=== PATIENT | female | born 1965 | race Caucasian/White ===

== ENCOUNTER 2021-04-28 16:02 | Emergency (ER) | payer OTHER, SELFPAY ==
--- NOTE | ~2021-04-28 | CT_ITS ---
EXAMINATION: CT abdomen pelvis w con DATE: 04/28/2021 19:54 INDICATION: Abdominal pain TECHNIQUE: Computed tomography (CT) of the abdomen and pelvis was performed with 100 mL Omnipaque-350 intravenous contrast. Automated exposure control and iterative reconstruction technique were employe d. The dose-length product was 672.55 mGy-cm. COMPARISON: None FINDINGS: Mild dependent atelectasis in the bilateral lower lobes. Heart size is normal. No pericardial or pleu ral effusion. Small sliding-type hiatal hernia. Liver, gallbladder, spleen, pancreas, bilateral adren al glands and kidneys are normal. There is prominent edematous wall thickening throughout multiple fl uid-filled but not frankly dilated loops of small bowel throughout the abdomen consistent with an ent eritis. Fluid in the colon consistent with diarrhea. Mild diverticulosis along the descending and sig moid colon without adjacent inflammatory change to suggest diverticulitis. Normal appendix. Bladder i s normal. The uterus is not identified and has likely been surgically resected. Small amount of ascit es scattered throughout the abdomen and pelvis. No abscess or free intraperitoneal gas. No pathologic ally enlarged abdominal or pelvic lymphadenopathy. Mild scattered degenerative skeletal changes in th e spine and pelvis. IMPRESSION: 1. Extensive edematous wall thickening involving multiple loops of ileum consistent with enteritis mo st likely either infectious or inflammatory in etiology. 2. Small amount of likely reactive ascites. 3. Small sliding-type hiatal hernia. Reviewed, dictated and finalized at location [facility]. IMPRESSION: 1. Extensive edematous wall thickening involving multiple loops of ileum consis tent with enteritis most likely either infectious or inflammatory in etiology. 2. Small amount of likely reactive ascites. 3. Small sliding-type hiatal hernia.
[2021-04-28 16:18] VITALS: BP 165/101; PULSE 90; RESP 16; TEMP 36.3; O2SAT 99
[2021-04-28 16:43] LABS: Basophils Percent Auto 0.4 % (0.2-1.2); Eosinophils Absolute Auto 0.2 K/mm3 (0-0.3); Eosinophils Percent Auto 2.3 % (0-4.4); Hematocrit 44.6 % (37.0-47.0); Hemoglobin 14.3 g/dL (12.0-15.0); Immature Granulocyte Absolute 0.03 K/mm3 (0.00-0.031); Immature Granulocyte Percent A 0.4 % (0-0.5); Lymphocytes Absolute Auto 2.18 K/mm3 (0.9-3.2); Lymphocytes Percent Auto 26.8 % (18.3-44.2); Mean Corpuscular HGB Conc 32.1 g/dl (32-36); Mean Corpuscular Hemoglobin 30.2 pg (26-34); Mean Corpuscular Volume 94.1 fl (80-100); Monocytes Absolute Auto 0.4 K/mm3 (0.1-0.6); Monocytes Percent Auto 5.4 % (2.6-8.5); Neutrophils Absolute Auto 5.3 K/mm3 (1.3-6.7); Neutrophils Percent Auto 64.7 % (45.5-73.1); Platelet Count Result 259 k/mm3 (150-375); Red Blood Count 4.74 M/mm3 (4.2-5.4); Red Cell Distribution Width 13.2 % (11.5-14.5); White Blood Count 8.1 K/mm3 (4.5-10.0)
[2021-04-28 16:50] LABS: Add Urine Microscopic? YES; Appearance Urine Clear (Clear); Bilirubin Urine Negative (Negative); Blood Urine Negative (Negative); Color Urine Yellow (Yellow); Glucose Urine UA Negative (Negative); Ketones Urine Trace mg/dL (Negative); Leukocyte Esterase Ur Negative LEU/UL (Negative); Mucus Urine Rare /lpf; Nitrate Urine Negative (Negative); Protein Urine 1+ mg/dL (Negative); RBC Urine 0-2 /hpf (0-2); Specific Grav Ur 1.026 (1.001-1.035); WBC Urine 0-3 /hpf
[2021-04-28 16:56] LABS: Alanine Aminotransferase 19 U/L (4-35); Alkaline Phosphatase 83 U/L (38-126); Anion Gap 4 mmol/L (8-16); Aspartate Amino Transferase 21 U/L (14-36); Bilirubin,Total 0.7 mg/dL (0.2-1.3); Blood Urea Nitrogen 9 mg/dL (7-17); Calcium 8.8 mg/dL (8.4-10.2); Carbon Dioxide 30 mmol/L (22-30); Chloride 105 mmol/L (98-107); Estimated CRCL calculation 74 ml/min; Estimated Glomerular Filt Rate > 60; Glucose 137 mg/dL (65-110); Lipase 35 U/L (23-300); Potassium 3.7 mmol/L (3.4-5.0); Sodium 139 mmol/L (137-145)
[2021-04-28 19:04] VITALS: BP 167/94; PULSE 81; RESP 17; O2SAT 98
--- NOTE | 2021-04-28 19:07 | ED.GENADULT ---
HPI - General Adult General Chief complaint: Abdominal Pain Stated complaint: severe abd pain Time Seen by Provider: 04/28/21 19:03 Source: RN notes reviewed History of Present Illness HPI narrative: Patient presents to emergency department from home for abdominal pain. Patient states pain began 2 days ago. The pain is from the epigastric region down to the lower abdomen described as sharp and stabbing in nature states that the pain comes in waves denies any fevers or chills, chest pain, shortness of breath, nausea vomiting diarrhea or any other symptoms. States she did not take any medication for the pain Related Data Allergies Allergy/AdvReac Type Severity Reaction Status Date / Time acetaminophen [From Percocet] AdvReac Nausea and Verified 04/28/21 19:09 Vomiting oxycodone [From Percocet] AdvReac Nausea and Verified 04/28/21 19:09 Vomiting Review of Systems Review of Systems: Gen.: Denies fevers or chills ENT: Denies congestion Respiratory: Denies shortness of breath or cough CV: Denies chest pain or palpitations GI: See HPI denies burning, urgency, frequency or hematuria Musculoskeletal: Denies back pain or muscle pain Neuro: Denies numbness, tingling, weakness or focal weakness Skin: Denies rash Except as documented, all other systems reviewed and negative PMFSH Past Medical History Medical History (Updated 04/28/21 @ 20:37 by Charan Ortega DO) Patient denies significant medical history Social History Social History (Updated 04/28/21 @ 19:08 by Charan Ortega DO) Smoking status: Never smoker Exam Narrative: APPEARANCE: No acute distress, nontoxic, resting in bed HEENT: Normocephalic, atraumatic, OMM RESPIRATORY: No respiratory distress, clear to auscultation bilaterally with no rhonchi wheezing or rales CARDIOVASCULAR: RRR s murmur ABDOMINAL: Soft nondistended diffusely tender to palpation no rebound or guarding MUSCULOSKELETAl: Moves all extremities. No clubbing, cyanosis or edema. NEURO: Awake and alert. Following commands, speech normal, no focal deficits SKIN:: Warm, dry. Normal Color PSYCHIATRIC: Normal affect/mood Course Course Emergency Course: Called and discussed with Dr. Kwong presentation work-up discussed CT results. This time feels patient may be discharged on Cipro and Flagyl with follow-up as an outpatient Patient states that they are feeling much better at this time. States abdominal pain has resolved. Repeat abdominal exam shows the patient's abdomen to be soft and nontender. Discussed with patient results of workup and diagnosis. Discussed need for follow-up with primary care physician, reasons to return to the emergency department in proper use of medication. Patient understands and agrees to current treatment plan Vital Signs Vital signs: Vital Signs Temperature 97.4 F L 04/28/21 16:18 Pulse Rate 90 04/28/21 16:18 Respiratory Rate 16 04/28/21 16:18 Blood Pressure 165/101 H 04/28/21 16:18 Pulse Oximetry 99 04/28/21 16:18 Temperature 97.4 F L 04/28/21 16:18 Pulse Rate 85 04/28/21 19:56 Respiratory Rate 15 04/28/21 19:56 Blood Pressure 178/96 H 04/28/21 19:56 Pulse Oximetry 100 04/28/21 19:56 Medical Decision Making MDM Narrative Medical decision making narrative: Patient's abdomen is soft without significant pain or signs of surgical abdomen on serial exams. Lab and x-ray evaluations are reviewed and patient is felt to be a reasonable candidate for outpatient management. Patient was instructed as to limitations of x-ray and laboratory evaluation and encouraged to return to ED or primary physician for repeat exam in 12 hours if continued or worsening pain Vital Signs Vital Signs: Vital Signs Temperature 97.4 F L 04/28/21 16:18 Pulse Rate 90 04/28/21 16:18 Respiratory Rate 16 04/28/21 16:18 Blood Pressure 165/101 H 04/28/21 16:18 Pulse Oximetry 99 04/28/21 16:18 Temperature 97.4 F L 04/28/21 16:18 P
[2021-04-28] MEDS: KETOROLAC 30 MG/ML VIAL (*BKC) IV PUSH (19:20)
[2021-04-28] MEDS: SODIUM CHLORIDE 0.9% IV 1,000 ML 999 ML IV CONT (19:20)
[2021-04-28 19:56] VITALS: BP 178/96; PULSE 85; RESP 15; O2SAT 100
[2021-04-28 20:31] LABS: Lactic Acid Reflex 0.6 mmol/L (0.7-2.1)
[2021-04-28] MEDS: metroNIDAZOLE 250 MG TABLET 500 MG PO (20:57)
[2021-04-28] MEDS: CIPROFLOXACIN 500 MG TAB PO (20:58)
[2021-04-28 21:05] VITALS: BP 165/119; PULSE 82; RESP 17; O2SAT 99
== END 2021-04-28 21:08 | disposition home or self-care (01) ==
LOC: ANHED 20:50
PROVIDERS: Family Medicine; Emergency Provider Emergency Medicine
DX: K52.9 Noninfective gastroenteritis and colitis, unspecified (principal); K44.9 Diaphragmatic hernia without obstruction or gangrene
CPT/HCPCS: 36415; 74177; 80053; 81001; 83605; 83690; 85025; 87040; 96361; 96374; 99284; A9270; J1885; J7030; Q9967

== ENCOUNTER 2021-09-07 13:25 | Emergency (ER) | payer OTHER, SELFPAY ==
--- NOTE | ~2021-09-07 | XR_ITS ---
EXAMINATION: XR toe 1st RT min 2V DATE: 09/07/2021 15:17 INDICATION: Right great toe pain and edema post fall TECHNIQUE: Dorsal plantar, lateral and oblique views of the right great toe were obtained. COMPARISON: None FINDINGS: Comminuted intra-articular fracture of the right first proximal phalanx. There is 35 degrees dorsal a ngulation at 8 transverse fracture plane stenting across the mid diaphysis. There is no additional mi nimally displaced fracture plane extending to the distal articular cortex where there is approximatel y 1.5 mm step-off along the articular surface. No other fractures identified. Mild polyarticular oste oarthritis most prominent at the first metatarsophalangeal with additional minimal to mild osteoarthr itis at a few tarsometatarsal and interphalangeal joints. IMPRESSION: Comminuted intra-articular fracture of the right first proximal phalanx. Reviewed, dictated and finalized at [facility]. [employer]
[2021-09-07 13:45] VITALS: BP 170/99; PULSE 95; RESP 18; TEMP 36.9; O2SAT 99
[2021-09-07 14:59] VITALS: BP 160/98; PULSE 89; RESP 18; TEMP 36.7; O2SAT 99
[2021-09-07] MEDS: traMADol HCL (*CRX) 50 MG TABLET PO (16:30)
--- NOTE | 2021-09-07 20:34 | ED.GENADULT ---
HPI - General Adult General Chief complaint: Extremity Injury, Lower Stated complaint: Fell out of bed. Big toe pain R foot Time Seen by Provider: 09/07/21 15:00 Source: patient Mode of arrival: ambulatory Limitations: no limitations History of Present Illness HPI narrative: Patient is a 55-year-old male with chief complaint of right great toe pain with abrasion to the left ear after falling of the. Parents arrival. Patient reports that she grazed her ear on the nightstand and kicked a dresser. Patient denies loss of consciousness, changes in vision or hearing. Patient reports pain to the great toe. Patient denies any other areas of injury. Related Data Allergies Allergy/AdvReac Type Severity Reaction Status Date / Time acetaminophen [From Percocet] AdvReac Nausea and Verified 04/28/21 19:09 Vomiting oxycodone [From Percocet] AdvReac Nausea and Verified 04/28/21 19:09 Vomiting Review of Systems Review of Systems: CONSTITUTIONAL: Denies fever, chills, or sweats. EYES: Denies visual changes, redness, or discharge. ENT: Denies rhinorrhea, congestion, sore throat, or otalgia. CARDIOVASCULAR: Denies chest pain, palpitations, or edema. RESPIRATORY: Denies cough or dyspnea. GASTROINTESTINAL: Denies abdominal pain, nausea, vomiting, or diarrhea. GENITOURINARY: Denies dysuria or hematuria. SKIN: Reports abrasion denies rash or itching. MUSCULOSKELETAL: Reports right great toe pain denies back pain, joint pain, or myalgia. NEUROLOGIC: Denies headache, numbness, dizziness, or weakness. PSYCHIATRIC: Denies anxiety or depression. PMFSH Past Medical History Medical History (Updated 09/07/21 @ 16:46 by Mark Person PA-C) Patient denies significant medical history Social History Social History (Updated 04/28/21 @ 19:08 by Charan Ortega DO) Smoking status: Never smoker Exam Narrative: GENERAL: Well-appearing, well-nourished, and in no acute distress. HEAD: Normocephalic, atraumatic. EYES: PERRLA and EOMI. ENT: Nares clear, no rhinorrhea or epistaxis. Mucous membranes moist. Oropharynx without tonsillar hypertrophy exudate or other lesions. Bilateral TMs pearly blankenship nonbulging. Abrasion to lateral aspect of left ear. NECK: Supple. No adenopathy or masses. No carotid bruits or JVD CHEST: Clear to auscultation. No respiratory distress. No wheezes rales or rhonchi HEART: Regular rate and rhythm. EXTREMITIES: Swelling and tenderness to right great toe. Callus to lateral area. No issues proximally. Normal range of motion proximally. No edema proximally. SKIN: Warm, dry, no rash. NEURO: No focal deficits. Alert and oriented x3. PSYCH: Normal mood and affect. Course Vital Signs Vital signs: Vital Signs Temperature 98.4 F 09/07/21 13:45 Pulse Rate 95 09/07/21 13:45 Respiratory Rate 18 09/07/21 13:45 Blood Pressure 170/99 H 09/07/21 13:45 Pulse Oximetry 99 09/07/21 13:45 Temperature 98.0 F 09/07/21 14:59 Pulse Rate 89 09/07/21 14:59 Respiratory Rate 18 09/07/21 14:59 Blood Pressure 160/98 H 09/07/21 14:59 Pulse Oximetry 99 09/07/21 14:59 Medical Decision Making MDM Narrative Medical decision making narrative: Consult with Dr. Haley regarding the angulation of the patient's intra-articular fracture of the great toe. He states that there is not anything to be done in emergency department to put patient in postop shoe and have her follow-up in his office for further evaluation and management. Patient placed in postop shoe and given crutches to assist with ambulation. Patient given tramadol for discomfort. Patient instructed to return to emergency department if she has any emergent symptoms. Vital Signs Vital Signs: Vital Signs Temperature 98.4 F 09/07/21 13:45 Pulse Rate 95 09/07/21 13:45 Respiratory Rate 18 09/07/21 13:45 Blood Pressure 170/99 H 09/07/21 13:45 Pulse Oximetry 99 09/07/21 13:45 Temperature 98.0 F 09/07/21 14:59 Pulse Rate 89 09/07
== END 2021-09-07 17:27 | disposition home or self-care (01) ==
PROVIDERS: Emergency Provider Emergency Medicine
DX: S92.411A Displaced fracture of proximal phalanx of right great toe, initial encounter for closed fracture (principal); W06.XXXA Fall from bed, initial encounter
CPT/HCPCS: 73660; 99284; A9270

== ENCOUNTER 2022-05-29 15:00 | Emergency (ER) | payer OTHER, SELFPAY ==
--- NOTE | ~2022-05-29 | XR_ITS ---
EXAMINATION: XR chest 2V Exam Date/Time: 05/29/2022 15:33 CDT HISTORY: CHF,bilateral lower leg swelling Comparison: None available. RESULT: Lines, tubes, and devices: None. Lungs and pleura: Clear. Cardiomediastinal silhouette: Mild cardiomegaly. Dilated aortic root. Hyperinflated lungs, increased AP diameter. Other: No acute osseous or upper abdominal finding. IMPRESSION: No acute cardiopulmonary process. Likely component of respiratory bronchiolitis overlying chronic emp hysematous change. Mild cardiomegaly. Aortic root dilation. Reviewed, dictated and finalized at location [facility]. IMPRESSION: No acute cardiopulmonary process. Likely component of respiratory bronchiolitis overlying chronic emphysematous change. Mild cardiomegaly. Aortic root dilatio n.
[2022-05-29 15:04] VITALS: BP 198/93; RESP 14; TEMP 36.4; O2SAT 100
--- NOTE | 2022-05-29 15:07 | ECG_ITS ---
Measurements Intervals [place] Rate: 87 P: 65 VT: 141 QRS: 44 QRSD: 110 T: 79 QT: 378 QTc: 455 Interpretive Statements SINUS RHYTHM POSSIBLE RIGHT ATRIAL ENLARGEMENT LEFT ATRIAL ENLARGEMENT LEFT VENTRICULAR HYPERTROPHY AND ST-T CHANGE BORDERLINE ECG NO PREVIOUS ECG AVAILABLE FOR COMPARISON Electronically Signed On 05-30-2022 6:59:29 CDT by Bill Snider D.O.
[2022-05-29 15:26] LABS: Basophils Absolute Auto 0.1 K/mm3 (0.0-0.1); Basophils Percent Auto 0.8 % (0.2-1.2); Eosinophils Absolute Auto 0.3 K/mm3 (0-0.3); Eosinophils Percent Auto 5.2 % (0-4.4); Hematocrit 38.4 % (37.0-47.0); Hemoglobin 12.1 g/dL (12.0-15.0); Immature Granulocyte Absolute 0.02 K/mm3 (0.00-0.031); Immature Granulocyte Percent A 0.3 % (0-0.5); Lymphocytes Absolute Auto 1.36 K/mm3 (0.9-3.2); Mean Corpuscular HGB Conc 31.5 g/dl (32-36); Mean Corpuscular Volume 92.1 fl (80-100); Mean Platelet Volume 8.4 fl (7.4-10.4); Monocytes Absolute Auto 0.5 K/mm3 (0.1-0.6); Monocytes Percent Auto 8.4 % (2.6-8.5); Neutrophils Absolute Auto 3.9 K/mm3 (1.3-6.7); Neutrophils Percent Auto 63.3 % (45.5-73.1); Platelet Count Result 283 k/mm3 (150-375); Red Blood Count 4.17 M/mm3 (4.2-5.4); Red Cell Distribution Width 13.7 % (11.5-14.5); White Blood Count 6.2 K/mm3 (4.5-10.0)
[2022-05-29 15:34] LABS: Alanine Aminotransferase 18 U/L (6-35); Albumin Level 3.9 g/dL (3.5-5.1); Alkaline Phosphatase 99 U/L (38-126); Anion Gap 6 mmol/L (8-16); Aspartate Amino Transferase 22 U/L (14-36); Bilirubin,Total 0.3 mg/dL (0.2-1.3); Blood Urea Nitrogen 8 mg/dL (7-17); Calcium 8.6 mg/dL (8.4-10.2); Carbon Dioxide 30 mmol/L (22-30); Chloride 104 mmol/L (98-107); Estimated CRCL calculation 77 ml/min; Estimated Glomerular Filt Rate > 60; Glucose 176 mg/dL (65-110); Potassium 3.5 mmol/L (3.4-5.0); Prothrombin Time 12.7 Seconds (11.1-14.7); Sodium 140 mmol/L (137-145)
[2022-05-29 15:35] LABS: Partial Thromboplastin Time 36.4 SECONDS (22.3-36.8)
[2022-05-29 15:46] LABS: NT Pro B Type Natriuretic Pept 1090 pg/mL (5-100); Troponin I < 0.012 ng/mL (0.000-0.034)
--- NOTE | 2022-05-29 17:27 | ED.GENADULT ---
HPI - General Adult General Chief complaint: Extremity Problem,Nontraumatic Stated complaint: swelling in lower extremities Time Seen by Provider: 05/29/22 16:10 History of Present Illness HPI narrative: Patient is a 56-year-old female who presents ER with concerns of swelling in her lower extremities. Intermittent over the last week. Swelling used to go down in her ankles when she would elevate her legs but notes persistent. She has not tried any compression hose. She has no pain or cramping in her calves. No chest pain or shortness of breath. No orthopnea or shortness of breath. Denies history of heart failure. Patient also reports that she has developed a new rash over the last 2 to 3 weeks. It began on her back at her bra line and has since spread across her back, her chest, and her extremities. No purulent drainage. No fevers chills or sweats. They are pruritic. Related Data Home Medications Medication Instructions Recorded Confirmed naproxen sodium 220 mg capsule 220 mg PO BID PRN 09/08/21 11/10/21 Allergies Allergy/AdvReac Type Severity Reaction Status Date / Time acetaminophen [From Percocet] AdvReac Nausea and Verified 11/10/21 09:26 Vomiting oxycodone [From Percocet] AdvReac Nausea and Verified 11/10/21 09:26 Vomiting Review of Systems Review of Systems: All systems reviewed & are unremarkable except as noted in HPI and below Constitutional: Constitutional: Denies chills, Denies fatigue and Denies fever(s) ENT: Denies nasal congestion and Denies sore throat Respiratory: Respiratory: Denies cough, Denies dyspnea and Denies wheezing Gastrointestinal: Gastrointestinal: Denies abdominal pain, Denies nausea and Denies vomiting Musculoskeletal: Comments: Leg edema Integumentary/Breasts: Skin/Breast: Reports pruritus, Reports erythema and Reports rash PMF Past Medical History Medical History JUAN (obstructive sleep apnea) Patient denies significant medical history Surgical History Surgical History History of hysterectomy 2002 per patient questionnaire History of sinus surgery 2012 per patient questionnaire Family History Family History Other Esophagus cancer Hypertension Lung cancer Social History Social History Smoking packs per day: 0.5 Smoking cigarettes per day: 10.0 Years smoked: 30 Smoking pack-years: 15.00 Tobacco type: cigarettes Alcohol intake: current Substance use: never Substance use type: does not use 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 HEAD: Normocephalic, atraumatic. EYES: PERRL and EOMI. CHEST: Clear to auscultation. No respiratory distress. HEART: Regular rate and rhythm. Normal peripheral pulses. ABDOMEN: Soft, nontender, nondistended. EXTREMITIES: Normal range of motion. No edema. SKIN: Warm, dry. Rash on the back that is most prominent between the scapula and over the spine with dried scaling plaques. There are additional small dry plaques to the upper and lower extremities as well as the chest. Consistent with pityriasis. No vesicles or pustules. NEURO: Alert and oriented x3. PSYCH: Normal mood and affect. Course Course Emergency Course: Discussed treatment plan. Will place on Lasix with potassium supplementation and decrease swelling. Swelling is likely reactive to psoriasis plaques on the legs. There is no evidence of cellulitis. Recommend follow-up with PCP. Vital Signs Vital signs: Vital Signs Temperature 97.5 F L 05/29/22 15:04 Respiratory Rate 14 05/29/22 15:04 Blood Pressure 198/93 H 05/29/22 15:04 Pulse Oximetry 100 05/29/22 15:04 Oxygen Delivery Room Air 05/29/22 15:
[2022-05-29 17:53] VITALS: BP 170/92; PULSE 95; RESP 16; O2SAT 99
[2022-05-29 18:34] VITALS: BP 165/86; PULSE 87; RESP 18; O2SAT 98
== END 2022-05-29 18:35 | disposition home or self-care (01) ==
PROVIDERS: Emergency Medicine; Emergency Provider Emergency Medicine; PCP Obstetrics & Gynecology
DX: L42 Pityriasis rosea (principal); R60.0 Localized edema; G47.33 Obstructive sleep apnea (adult) (pediatric); F17.210 Nicotine dependence, cigarettes, uncomplicated
CPT/HCPCS: 36415; 71046; 80053; 83880; 84484; 85025; 85610; 85730; 93005; 99284

== ENCOUNTER 2022-08-08 07:05 | Emergency (ER) | payer OTHER, SELFPAY ==
[2022-08-08 07:10] VITALS: BP 161/85; PULSE 100; RESP 16; TEMP 36.4; O2SAT 100
[2022-08-08 07:15] VITALS: BP 159/89; O2SAT 100
[2022-08-08 07:30] VITALS: BP 152/81
--- NOTE | 2022-08-08 07:53 | ED.GENADULT ---
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 She has been putting Neosporin on the lesion. Patient thinks it may have been an abscess because shortly before arrival it opened up and a bloody/pussy liquid came out of it. No fever or trauma. Patient also states lesions on her vagina for an unknown duration of time. These lesions are sometimes uncomfortable and sometimes edge. Last Pap smear was greater than 5 years ago. Total hysterectomy 20 years ago. Related Data Home Medications Medication Instructions Recorded Confirmed naproxen sodium 220 mg capsule 220 mg PO BID PRN 09/08/21 11/10/21 Allergies Allergy/AdvReac Type Severity Reaction Status Date / Time acetaminophen [From Percocet] AdvReac Nausea and Verified 11/10/21 09:26 Vomiting oxycodone [From Percocet] AdvReac Nausea and Verified 11/10/21 09:26 Vomiting Review of Systems Review of Systems: CONSTITUTIONAL: Denies fever, chills, or sweats. EYES: Denies visual changes, redness, or discharge. ENT: Denies rhinorrhea, congestion, sore throat, or otalgia. CARDIOVASCULAR: Denies chest pain, palpitations, or edema. RESPIRATORY: Denies cough or dyspnea. GASTROINTESTINAL: Denies abdominal pain, nausea, vomiting, or diarrhea. GENITOURINARY: Denies dysuria or hematuria. SKIN: Denies rash or itching. MUSCULOSKELETAL: Denies back pain, joint pain, or myalgia. NEUROLOGIC: Denies headache, numbness, or weakness. PSYCHIATRIC: Denies anxiety or depression. [facility] Past Medical History Medical History JUAN (obstructive sleep apnea) Patient denies significant medical history Surgical History Surgical History History of hysterectomy 2002 per patient questionnaire History of sinus surgery 2012 per patient questionnaire Family History Family History Other Esophagus cancer Hypertension Lung cancer Social History Social History Smoking packs per day: 0.5 Smoking cigarettes per day: 10.0 Years smoked: 30 Smoking pack-years: 15.00 Tobacco type: cigarettes Alcohol intake: current Substance use: never Substance use type: does not use 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 HEAD: Normocephalic, atraumatic. EYES: PERRLA and EOMI. ENT: Nares clear, no rhinorrhea or epistaxis. Mucous membranes moist. NECK: Supple. CHEST: Clear to auscultation. No respiratory distress. HEART: Regular rate and rhythm. No murmur heard. Normal peripheral pulses. ABDOMEN: Soft, nontender, nondistended, normal active bowel sounds. EXTREMITIES: Normal range of motion. No edema. SKIN: Warm, dry, no rash. Lesions noted on patient's abdomen, back, all extremities which are in different stages of healing, there is a 2 to 3 cm lesion on right medial calf which seems to have been irritated versus infected. Small area of surrounding cellulitis NEURO: No focal deficits. Alert and oriented x3. PSYCH: Normal mood and affect. : Fleshy, irregularly shaped, raised lesions on bilateral labia Course Vital Signs Vital signs: Vital Signs Temperature 97.6 F 08/08/22 07:10 Pulse Rate 100 08/08/22 07:10 Respiratory Rate 16 08/08/22 07:10 Blood Pressure 161/85 H 08/08/22 07:10 Pulse Oximetry 100 08/08/22 07:10 Oxygen Delivery Room Air 08/08/22 07:10 Temperature 97.6 F 08/08/22 07:10 Pulse Rate 100 08/08/22 07:10 Respiratory Rate 16 08/08
== END 2022-08-08 08:21 | disposition home or self-care (01) ==
PROVIDERS: Emergency Provider Emergency Medicine; PCP Obstetrics & Gynecology
DX: N89.8 Other specified noninflammatory disorders of vagina (principal); L03.115 Cellulitis of right lower limb; L02.91 Cutaneous abscess, unspecified; Z90.710 Acquired absence of both cervix and uterus; G47.33 Obstructive sleep apnea (adult) (pediatric); F17.210 Nicotine dependence, cigarettes, uncomplicated
CPT/HCPCS: 99283